=== PATIENT | female | born 1940 | race Caucasian/White ===

== ENCOUNTER → 2017-05-03 | Emergency (ER) | payer OTHER ==
[~2017-05-03] VITALS: Ht 160 cm; Wt 57.2 kg
[~2017-05-03] MED LIST: DEXAMETHASONE0.5 MG; JANUVIA100 MG; PANTOPRAZOLE SO40 MG; TUSSLIN LIQUID474 ML
== END | disposition home or self-care (01) ==
LOC: ER 11:54
DX: B37.0 Candidal stomatitis (principal); E11.9 Type 2 diabetes mellitus without complications